=== PATIENT | male | born 1995 | race Caucasian/White ===

== ENCOUNTER 2019-05-27 12:30 | Emergency (ER) | payer OTHER ==
[~2019-05-27] VITALS: Ht 198.1 cm; Wt 77.9 kg
[2019-05-27 12:34] VITALS: BP 129/74
--- NOTE | 2019-05-27 13:23 | NUR ---
EXAM BY PA FOR LEFT EAR PAIN AND D/C GIVEN
== END 2019-05-27 13:26 | disposition home or self-care (01) ==
LOC: ED 13:20
DX: H92.02 Otalgia, left ear (principal); M26.622 Arthralgia of left temporomandibular joint
CPT/HCPCS: 99282